=== PATIENT | female | born 1990 ===

== ENCOUNTER 2020-06-06 09:53 | Outpatient (CLI) | payer BC ==
[2020-06-06 18:28] LABS: SARS-CoV-2 PCR by NAA Not Detected (NotDetected)
== END 2020-06-06 09:54 | disposition home or self-care (01) ==
LOC: LABBT 09:53
PROVIDERS: ATTEND Obstetrics & Gynecology
DX: Z20.822 Contact with and (suspected) exposure to COVID-19 (principal)
CPT/HCPCS: 87635; U0003; U0005

== ENCOUNTER 2020-06-07 03:55 | Inpatient (IN) | payer BC ==
[2020-06-07] MEDS: Lactated Ringer's 1,000 ML IV SCH ×2 (04:20→05:16)
[2020-06-07] MEDS ORDERED: Fentanyl 4 mcg/Bup 0.1% Cadd 100 ML ONE (04:33)
[2020-06-07 04:37] LABS: Hemoglobin 13.3 g/dL (12.0-16.0); Mean Corpuscular HGB CONC 34.6 g/dL (32.0-36.0); Mean Corpuscular Hemoglobin 33.4 pg (27.0-31.0); Mean Corpuscular Volume 96.4 fL (78.0-98.0); Platelet Count 175 thou/uL (130-400); Red Blood Cell (RBC) Count 3.99 mill/uL (4.20-5.40); White Blood Cell (WBC) Count 14.2 thou/uL (4.8-10.8)
[2020-06-07 04:52] VITALS: BMI 25.8
[2020-06-07] MEDS ORDERED: NS w/ Oxytocin 30 units 500 ML IV PRN (04:58)
[2020-06-07] MEDS ORDERED: Misoprostol 200 MCG TAB RC PRN (05:00)
[2020-06-07] MEDS ORDERED: Promethazine HCl 25 MG/ML VIAL IM PRN ×2 (05:00→05:30)
[2020-06-07] MEDS ORDERED: Ondansetron PF 4 MG/2 ML Vial IVP PRN ×3 (05:00→13:34)
[2020-06-07] MEDS ORDERED: Lactated Ringer's 1,000 ML IV SCH (05:00)
[2020-06-07] MEDS ORDERED: hydrALAZINE 20 MG/ML VIAL SLOW IVP PRN ×2 (05:00→13:34)
[2020-06-07] MEDS ORDERED: Lidocaine 1% (PF) 30 ML VIAL SC PRN (05:00)
[2020-06-07] MEDS ORDERED: NS w/ Oxytocin 30 units 500 ML IV SCH ×3 (05:00→13:45)
[2020-06-07] MEDS ORDERED: Methylergonovine 0.2 MG/ML VIAL IM PRN (05:00)
[2020-06-07] MEDS ORDERED: Carboprost 250 MCG/ML AMP IM PRN (05:00)
[2020-06-07 05:13] LABS: Syphilis Antibody Nonreactive (Nonreactive); Syphilis Antibody Index 0.02 S/CO (<1.00 Non-Reactive)
[2020-06-07 05:17] LABS: HBSAg Index 0.16 S/CO (0-0.99); Hep B Surf Ag Non-Reactive S/CO (NonReactive)
[2020-06-07] MEDS ORDERED: Communication Order-Pharmacy FS SCH (05:30)
[2020-06-07] MEDS ORDERED: Acetaminophen 325 MG TAB PO PRN (05:30)
[2020-06-07] MEDS ORDERED: ePHEDrine 50 MG/ML VIAL SLOW IVP PRN (05:30)
[2020-06-07] MEDS ORDERED: Naloxone HCl 0.4 mg/ml Vial IVP PRN ×2 (05:30)
[2020-06-07] MEDS ORDERED: diphenhydrAMINE 50 MG/ML VIAL IVP PRN (05:30)
[2020-06-07] MEDS ORDERED: Lactated Ringer's 500 ML IV PRN (05:30)
[2020-06-07] MEDS ORDERED: Fentanyl 4 mcg/Bupivacaine 0.1% Cassette 100 ML EPIDURAL SCH (05:30)
[2020-06-07] MEDS ORDERED: NS w/ Oxytocin 30 units 500 ML ONE (07:53)
[2020-06-07] MEDS ORDERED: Lidocaine 1% (PF) 30 ML VIAL ONE (07:53)
[2020-06-07] MEDS ORDERED: Bupivacaine HCl 0.25%/Epi 0.0005/PF 10 ML VIAL FS ONE (09:25)
[2020-06-07] MEDS ORDERED: Adacel (T-DAP) 0.5 ML SYRINGE IM ONE (13:34)
[2020-06-07] MEDS ORDERED: Zolpidem Tartrate 5 MG TAB PO PRN (13:34)
[2020-06-07] MEDS ORDERED: Lanolin Ointment 7 GM TUBE TOP PRN (13:34)
[2020-06-07] MEDS ORDERED: Misoprostol 200 MCG TAB VAG PRN (13:34)
[2020-06-07] MEDS ORDERED: HYDROcodone/Acetaminophen 5/325 mg Tablet PO PRN (13:34)
[2020-06-07] MEDS ORDERED: diphenhydrAMINE 25 MG CAP PO PRN (13:34)
[2020-06-07] MEDS ORDERED: Bisacodyl 10 MG SUPP PR PRN (13:34)
[2020-06-07] MEDS ORDERED: Preparation H Ointment 28 GM TUBE PR PRN (13:34)
[2020-06-07] MEDS ORDERED: Benzocaine-Menthol 82.5 ML CAN TOP PRN (13:34)
[2020-06-07] MEDS ORDERED: Oxytocin 10 UNITS/ML VIAL ONE ×2 (14:19)
[2020-06-07] MEDS: Ibuprofen 800 MG TAB PO SCH ×2 (15:50→21:59)
[2020-06-07] MEDS: CEFAZOLIN 2 GM in Premix Bag 1 BAG IVPB SCH (15:52)
[2020-06-07] MEDS: Ferrous Sulfate 325 MG TAB PO SCH (17:13)
[2020-06-07] MEDS ORDERED: Witch Hazel-Glycerin 1 EACH JAR TOP PRN (17:21)
[2020-06-07] MEDS: Docusate Calcium (SURFAK) 240 MG CAP PO SCH (21:58)
[2020-06-08] MEDS: CEFAZOLIN 2 GM in Premix Bag 1 BAG IVPB SCH
[2020-06-08] MEDS: Ibuprofen 800 MG TAB PO SCH ×3 (05:57→22:00)
[2020-06-08 06:54] LABS: #Eosinphils 0.1 thou/uL (0.0-0.7); #Neutrophils 14.8 thou/uL (1.40-6.50); %Basophils 0.2 % (0.0-1.0); %Eosinophils 0.4 % (0.0-10.0); %Monocytes 5.4 % (0.0-10.0); Hemoglobin 11.9 g/dL (12.0-16.0); Mean Corpuscular HGB CONC 34.4 g/dL (32.0-36.0); Mean Corpuscular Hemoglobin 34.4 pg (27.0-31.0); Mean Platelet Volume 8.8 fL (7.4-10.4); Platelet Count 156 thou/uL (130-400); RBC Distribution Width 12.3 % (11.5-14.5); Red Blood Cell (RBC) Count 3.45 mill/uL (4.20-5.40); White Blood Cell (WBC) Count 17.9 thou/uL (4.8-10.8)
[2020-06-08] MEDS: Docusate Calcium (SURFAK) 240 MG CAP PO SCH ×2 (09:01→22:00)
[2020-06-08] MEDS: Milk Of Magnesia 30 ML UDCUP PO PRN (09:01)
[2020-06-08] MEDS: Prenatal Vitamin 1 TAB PO SCH (09:01)
[2020-06-08] MEDS: Triple Antibiotic Ointment 15 GM TUBE TOP SCH ×2 (09:11→22:01)
[2020-06-08] MEDS: Ferrous Sulfate 325 MG TAB PO SCH ×2 (11:53→15:39)
[2020-06-09] MEDS: Ibuprofen 800 MG TAB PO SCH (05:12)
[2020-06-09] MEDS: Ferrous Sulfate 325 MG TAB PO SCH (07:44)
[2020-06-09 08:29] VITALS: BP 117/77; TEMP 98.2
[2020-06-09] MEDS: Docusate Calcium (SURFAK) 240 MG CAP PO SCH (09:25)
[2020-06-09] MEDS: Prenatal Vitamin 1 TAB PO SCH (09:25)
[2020-06-09] MEDS: Milk Of Magnesia 30 ML UDCUP PO PRN (09:25)
== END 2020-06-09 12:10 | disposition home or self-care (01) | DRG 768 ==
LOC: L&D/OP 03:55 → L&D 04:27 → 3SW 16:25
PROVIDERS: ADMIT Obstetrics & Gynecology; ATTEND Obstetrics & Gynecology
PROC: 10D07Z6 Extraction of Products of Conception, Vacuum, Via Natural or Artificial Opening (ICD-10-PCS; principal; 2020-06-07)
PROC: 0DQR0ZZ Repair Anal Sphincter, Open Approach (ICD-10-PCS; 2020-06-07)
PROC: 0W8NXZZ Division of Female Perineum, External Approach (ICD-10-PCS; 2020-06-07)
DX: O70.20 Third degree perineal laceration during delivery, unspecified (principal); Z37.0 Single live birth; Z20.822 Contact with and (suspected) exposure to COVID-19; Z88.0 Allergy status to penicillin; Z3A.38 38 weeks gestation of pregnancy
CPT/HCPCS: 36415; 51702; 85025; 85027; 86780; 86850; 86900; 86901; 87340; 87635; 99285; J0690; J2590; U0003; U0005

== ENCOUNTER 2020-06-11 20:45 | Emergency (ER) | payer BC ==
[2020-06-11 21:43] LABS: #Basophils 0.1 thou/uL (0.0-0.2); #Eosinphils 0.2 thou/uL (0.0-0.7); #Lymphocytes 2.6 thou/uL (1.20-3.40); #Monocytes 0.6 thou/uL (0.11-0.59); #Neutrophils 10.1 thou/uL (1.40-6.50); %Basophils 0.5 % (0.0-1.0); %Eosinophils 1.3 % (0.0-10.0); %Lymphocytes 18.8 % (21.0-51.0); %Monocytes 4.4 % (0.0-10.0); Hemoglobin 13.6 g/dL (12.0-16.0); Mean Corpuscular HGB CONC 34.1 g/dL (32.0-36.0); Mean Corpuscular Hemoglobin 33.4 pg (27.0-31.0); Mean Corpuscular Volume 98.1 fL (78.0-98.0); Mean Platelet Volume 7.7 fL (7.4-10.4); Platelet Count 263 thou/uL (130-400); RBC Distribution Width 11.9 % (11.5-14.5); Red Blood Cell (RBC) Count 4.06 mill/uL (4.20-5.40); White Blood Cell (WBC) Count 13.5 thou/uL (4.8-10.8)
--- NOTE | 2020-06-12 00:38 | CON ---
DATE OF CONSULTATION: 06/11/2020 PLACE OF SERVICE: Emergency department room #8. CONSULTING PHYSICIAN: Barak Lai DO CHIEF COMPLAINT: Bleeding following vaginal delivery. HISTORY OF PRESENT ILLNESS: This is a 29-year-old G1, P1, status post vacuum assisted vaginal delivery with a third-degree laceration on 06/07/2020. The patient reports having passed several large clots and was concerned it was coming from her rectum. When she arrived, she had an exam by Dr. Lai who did not see any significant bleeding or abnormalities and asked me to come down for a 2nd opinion. She is having some pain but is otherwise doing okay. She reports that she has had increased today with more cramping. REVIEW OF SYSTEMS: Negative for head, eyes, ears, nose, throat, cardiovascular, respiratory, GI, , neuropsych, musculoskeletal, skin, or constitutional symptoms other than mentioned above. PAST MEDICAL HISTORY: 1. Migraines. 2. HSV-2. PAST SURGICAL HISTORY: Tonsillectomy and oral surgery. MEDICATIONS: vitamins, ibuprofen. ALLERGIES: PENICILLIN. SOCIAL HISTORY: Negative for tobacco, alcohol, or drug abuse. FAMILY HISTORY: Noncontributory. PHYSICAL EXAMINATION: VITAL SIGNS: Blood pressure 112/82, pulse 97, respiratory rate 18, O2 saturation 100% on room air. GENERAL: Awake, alert, in no acute distress. CHEST: Nonlabored. ABDOMEN: Soft. PELVIC: A well healing third-degree laceration repair. The area appears well approximated with no evidence of infection or dehiscence. There is minimal blood in the vaginal vault. RECTAL: Was performed and revealed no blood and an intact rectal mucosa. ASSESSMENT AND PLAN: A 29-year-old G1, P1, status post vacuum assisted vaginal delivery with a third-degree laceration and normal-appearing lochia. I discussed with the patient that when breast-feeding, the hormone release increases uterine cramping which can cause her to pass some clots and their appearance in the toilet water makes it look much more extreme. I reassured her that the laceration repair appears without any infection or complication and instructed her to follow up with Dr. Morales as scheduled on Saturday. Job ID: [id number] [facility]
== END 2020-06-11 22:42 | disposition home or self-care (01) ==
LOC: ERS 20:45
DX: O72.1 Other immediate postpartum hemorrhage (principal)
CPT/HCPCS: 36415; 85025; 86850; 86900; 86901; 99284